=== PATIENT | female | born 1965 | race Two or more races ===

== ENCOUNTER 2020-02-02 10:45 | Emergency (ER) | payer BC, OTHER ==
[~2020-02-02] VITALS: Ht 160 cm; Wt 88.5 kg
[2020-02-02 10:45] VITALS: BP_SYST 155
[2020-02-02 11:55] LABS: BASOPHILS % (AUTO) 0.8 % (0.0-2.0); EOSINOPHILS # (AUTO) 0.2 K/uL (0.0-0.4); EOSINOPHILS % (AUTO) 3.5 % (0.0-4.0); HEMATOCRIT 40.3 % (36-48); HEMOGLOBIN 13.5 g/dL (12.0-16.0); LYMPHOCYTES # (AUTO) 1.8 K/uL (1.0-5.5); LYMPHOCYTES % (AUTO) 30.8 % (20.5-51.5); MEAN CORPUSCULAR HEMOGLOBIN 29 pg (27-31); MEAN CORPUSCULAR HGB CONC 34 % (32-36); MEAN CORPUSCULAR VOLUME 85 fL (79.0-98.0); MONOCYTES # (AUTO) 0.5 K/uL (0.0-1.0); MONOCYTES % (AUTO) 7.7 % (1.7-9.3); NEUTROPHILS # (AUTO) 3.3 K/uL (1.8-7.7); NEUTROPHILS % (AUTO) 57.2 % (40.0-70.0); PLATELET COUNT (AUTO) 253 K/uL (130-430); RED BLOOD CELL COUNT(AUTO) 4.73 MIL/uL (4.2-6.2); RED CELL DISTRIBUTION WIDTH 13.5 % (9.0-15.0); WHITE BLOOD COUNT (AUTO) 5.8 K/uL (4.8-10.8)
[2020-02-02 12:17] LABS: ANION GAP 5 (5-15); CALCIUM 9.2 mg/dL (8.4-11.0); CHLORIDE 106 mmol/L (98-107); CREATININE 0.69 mg/dL (0.55-1.30); GLUCOSE 90 mg/dL (70-99); POTASSIUM 4.3 mmol/L (3.5-5.1); SODIUM SERUM 140 mmol/L (136-145); UREA NITROGEN, BLOOD 13 mg/dL (8-21)
[2020-02-02 12:20] LABS: GFR AFRICAN AMERICAN 114 mL/min (>90)
[2020-02-02 12:26] LABS: ALANINE AMINOTRANSFERASE 31 U/L (12-78); ALBUMIN 3.9 g/dL (3.4-4.8); ASPARTATE AMINOTRANSFERASE 19 U/L (10-37); LIPASE 139 U/L (73-393); TOTAL BILIRUBIN 0.4 mg/dL (0.0-1.0)
[2020-02-02 13:07] VITALS: BP_SYST 141
== END 2020-02-02 13:07 | disposition home or self-care (01) ==
LOC: SED 10:45
DX: K21.9 Gastro-esophageal reflux disease without esophagitis (principal)
CPT/HCPCS: 36415; 76376; 80053; 81002; 83690-TC; 84484; 85025; 93005; 99285

== ENCOUNTER 2021-08-11 14:22 | Emergency (ER) | payer BC ==
[~2021-08-11] VITALS: Ht 160 cm; Wt 93.0 kg
[2021-08-11 14:30] VITALS: BP_SYST 136
--- NOTE | 2021-08-11 15:21 | NUR ---
BROUGHT BACK TO BED #5 AND REPORT GIVEN TO KATIE
--- NOTE | 2021-08-11 15:46 | NUR ---
56YO F WITH C/O WORSENING DYSPHAGIA X 1 WEEK. PT STATES THAT THERE IS A FEELING OF "BEING STUCK" WHEN SWALLOWING SOLIDS, BUT ABLE TO SWALLOW LIQUIDS. PT ALSO COMPLAINS OF BURNING SENSATION IN UPPER CHEST AND EPIGASTRIC AREA. NO MEDS TAKEN. PMH: HIATAL HERNIA
--- NOTE | 2021-08-11 16:45 | NUR ---
md at bedside evaluating patient
[2021-08-11] MEDS ORDERED: MAG HYDROX/AL HYDROX/SIMETH 30 ML, DICYCLOMINE HCL 20 MG, LIDOCAINE VISCOUS 2% 15ML (PO... PO ONE ×3 (17:00)
[2021-08-11 17:33] LABS: BASOPHILS # (AUTO) 0.1 K/uL (0.0-0.2); BASOPHILS % (AUTO) 1.8 % (0.0-2.0); EOSINOPHILS # (AUTO) 0.2 K/uL (0.0-0.4); HEMATOCRIT 40.5 % (36-48); HEMOGLOBIN 13.6 g/dL (12.0-16.0); LYMPHOCYTES # (AUTO) 1.4 K/uL (1.0-5.5); LYMPHOCYTES % (AUTO) 25.3 % (20.5-51.5); MEAN CORPUSCULAR HEMOGLOBIN 28 pg (27-31); MEAN CORPUSCULAR HGB CONC 34 % (32-36); MEAN CORPUSCULAR VOLUME 83 fL (79.0-98.0); MONOCYTES # (AUTO) 0.3 K/uL (0.0-1.0); MONOCYTES % (AUTO) 5.3 % (1.7-9.3); NEUTROPHILS # (AUTO) 3.5 K/uL (1.8-7.7); NEUTROPHILS % (AUTO) 63.6 % (40.0-70.0); PLATELET COUNT (AUTO) 251 K/uL (130-430); RED BLOOD CELL COUNT(AUTO) 4.88 MIL/uL (4.2-6.2); RED CELL DISTRIBUTION WIDTH 13.5 % (9.0-15.0); WHITE BLOOD COUNT (AUTO) 5.6 K/uL (4.8-10.8)
[2021-08-11 17:35] LABS: CALCIUM 8.5 mg/dL (8.4-11.0); CREATININE 0.85 mg/dL (0.55-1.30)
[2021-08-11 17:36] LABS: BILIRUBIN,URINE NEGATIVE (NEGATIVE); BLOOD, URINE NEGATIVE (NEGATIVE); CLARITY/URINE CLEAR (CLEAR); COLOR,URINE YELLOW (YELLOW); GLUCOSE,URINE NEGATIVE (NEGATIVE); KETONES,URINE TRACE (NEGATIVE); LEUKOCYTE ESTERASE ,URINE NEGATIVE (NEGATIVE); NITRITE, URINE NEGATIVE (NEGATIVE); PH,URINE 6.5 (5.0-8.0); PROTEIN URINE NEGATIVE (NEGATIVE)
[2021-08-11 17:41] LABS: ALBUMIN 3.6 g/dL (3.4-4.8); TOTAL BILIRUBIN 0.2 mg/dL (0.0-1.0)
[2021-08-11] MEDS ORDERED: ANT30 PO (18:05)
[2021-08-11] MEDS ORDERED: OMEP20TA20 PO (18:05)
[2021-08-11 18:34] VITALS: BP_SYST 136
--- NOTE | 2021-08-11 18:34 | NUR ---
Patient given written and verbal discharge instructions and verbalizes understanding. ER MD discussed with patient the results and treatment provided. Patient in stable condition. ID arm band removed. Rx of mylanta and omeprazole given. Patient educated on pain management and to follow up with PMD. Pain Scale 0. Opportunity for questions provided and answered. Medication side effect fact sheet provided.
== END 2021-08-11 18:34 | disposition home or self-care (01) ==
LOC: SED 14:22
DX: R10.13 Epigastric pain (principal)
CPT/HCPCS: 36415; 80053; 81003; 83690; 85025; 93005; 99284; J2001

== ENCOUNTER 2022-04-14 07:02 | Emergency (ER) | payer BC ==
[~2022-04-14] VITALS: Ht 160 cm; Wt 94.8 kg
[~2022-04-14 07:02] MED LIST: ANT30 PO; OMEP20TA20 PO
[2022-04-14 07:34] VITALS: BP_SYST 135
--- NOTE | 2022-04-14 07:35 | NUR ---
Pt brought in by self and ambulated to bed 4. Pt is A&Ox4, c/o chest of pain that radiated to her back than down her left arm and across chest that lasted 10 minutes. Pt denies pain at this time. Pt states no history of HTN or Diabetes. Will continue to monitor and assess.
--- NOTE | 2022-04-14 07:40 | NUR ---
ER Dr. Mirza at bedside examining patient.
--- NOTE | 2022-04-14 08:25 | NUR ---
Dr Mirza at bedside to discuss plan of care.
[2022-04-14] MEDS ORDERED: NAPR-688 PO (08:27)
[2022-04-14 09:06] VITALS: BP_SYST 135
--- NOTE | 2022-04-14 09:09 | NUR ---
Patient given written and verbal discharge instructions and verbalizes understanding. ER Dr. Mirza discussed with patient the results and treatment provided. Patient in stable condition. ID arm band removed. Rx of Naproxen given. Patient educated on pain management and to follow up with PMD. Pain Scale 0/10. Opportunity for questions provided and answered. Medication side effect fact sheet provided.
== END 2022-04-14 09:09 | disposition home or self-care (01) ==
LOC: SED 07:02
DX: R07.9 Chest pain, unspecified (principal); Z79.899 Other long term (current) drug therapy
CPT/HCPCS: 71045; 93005; 99283